=== PATIENT | female | born 1985 | race Caucasian/White ===

== ENCOUNTER 2021-02-01 14:31 | Emergency (ER) | payer SELFPAY ==
[2021-02-01 15:34] VITALS: BP 123/83; PULSE 63; RESP 20; TEMP 36.7; O2SAT 100
--- NOTE | 2021-02-01 17:15 | ED.EYEPROB ---
HPI - Eye Problem General Chief complaint: Eye Problems Stated complaint: Eye Problem Time Seen by Provider: 02/01/21 17:10 Source: patient, RN notes reviewed and old records reviewed Mode of arrival: ambulatory Limitations: no limitations History of Present Illness HPI Narrative: 35 year old female who presents to [facility] care with complaints of right eye irritation which started yesterday. Patient stats no feelings of foreign body or any trauma to her eye.Patient denies any change in her vision some increase tearing present, denies any acute sharp pain to her right eye. Patient does not wear contacts. No cold symptoms reported, has had 1 COVID vaccination. chief complaint: eye pain and eye redness Related Data Allergies Allergy/AdvReac Type Severity Reaction Status Date / Time No Known Allergies Allergy Other Uncoded 02/01/21 16:01 Review of Systems Review of Systems: CONSTITUTIONAL: Denies fever, chills, or sweats. EYES: Denies visual changes,positive for redness and soreness to right eye, increased tearing ENT: Denies rhinorrhea, congestion, sore throat, or otalgia. CARDIOVASCULAR: Denies chest pain, palpitations, or edema. RESPIRATORY: Denies cough or dyspnea. GASTROINTESTINAL: Denies abdominal pain, nausea, vomiting, or diarrhea. GENITOURINARY: Denies dysuria or hematuria. SKIN: Denies rash or itching. MUSCULOSKELETAL: Denies back pain, joint pain, or myalgia. NEUROLOGIC: Denies headache, numbness, or weakness. PSYCHIATRIC: Denies anxiety or depression. All systems reviewed & are unremarkable except as noted in HPI and below PMFSH Past Medical History Medical History (Updated 02/03/21 @ 11:21 by Keren Staples NP) Ovarian cyst Surgical History Surgical History (Updated 02/03/21 @ 11:21 by Keren Staples NP) History of tubal ligation Previous section X3 Family History Family History (Updated 02/03/21 @ 11:22 by Keren Staples NP) Other Family history non-contributory Social History Social History (Updated 02/03/21 @ 11:21 by Keren Staples NP) Smoking status: Never smoker Alcohol intake: current Alcohol use details: rare social Substance use: never Living arrangements: with family Gender identity (if verbalized by the patient): Female Comments At time of signature, agree with nursing past medical, surgical, social and family history. There is no relevant family history pertinent to the presenting complaint Exam Narrative: GENERAL: Well-appearing, well-nourished, and in no acute distress. HEAD: Normocephalic, atraumatic. EYES: PERRLA and EOMI.right eye sclera and conjunctiva red with no drainage noted from right eye, increased tearing, denies any changes in vision or sharp pain to right eye. ENT: Nares clear, no rhinorrhea or epistaxis. Mucous membranes moist.TM's normal with good light reflex, throat pink with no lesions or exudates or tonsil swelling NECK: Supple.no lymphadenopathy CHEST: Clear to auscultation. No respiratory distress. no cough noted SAO2 100% on room air HEART: Regular rate and rhythm. No murmur heard. Normal peripheral pulses. ABDOMEN: Soft, nontender, nondistended, normal active bowel sounds. EXTREMITIES: Normal range of motion. No edema. SKIN: Warm, dry, no rash. NEURO: No focal deficits. Alert and oriented x3. Course Vital Signs Vital signs: Vital Signs Temperature 36.7 C 02/01/21 15:34 Pulse Rate 63 02/01/21 15:34 Respiratory Rate 20 02/01/21 15:34 Blood Pressure 123/83 02/01/21 15:34 Pulse Oximetry 100 02/01/21 15:34 Temperature 36.7 C 02/01/21 15:34 Pulse Rate 63 02/01/21 15:34 Respiratory Rate 20 02/01/21 15:34 Blood Pressure 123/83 02/01/21 15:34 Pulse Oximetry 100 02/01/21 15:34 MDM - Eye Problem Differential Diagnosis Differential diagnosis: Likely conjunctivitis and other (right eye irritation and redness) Medical Records Attestation: I reviewed the patient's medical records.
== END 2021-02-01 17:30 | disposition home or self-care (01) ==
PROVIDERS: Emergency Provider Registered Nurse
DX: H10.9 Unspecified conjunctivitis (principal)
CPT/HCPCS: 99213; G0463

== ENCOUNTER 2021-03-15 10:46 | Emergency (ER) | payer SELFPAY ==
[2021-03-15 10:52] VITALS: BP 134/79; PULSE 70; RESP 18; TEMP 37; O2SAT 100
--- NOTE | 2021-03-15 11:17 | ED.DENTAL ---
HPI - Dental/Oral General Chief complaint: Dental/Oral Stated complaint: Facial swelling Time Seen by Provider: 03/15/21 11:06 Source: patient and RN notes reviewed Mode of arrival: ambulatory Limitations: no limitations History of Present Illness HPI Narrative: Patient presents today complaining of right jaw pain and swelling x2 days as been worsening since onset. States she is also having difficulty opening her mouth all the way. She currently rates her pain 9/10 and has been taking ibuprofen with mild relief. States that she does have some bad teeth. Similar situation occurred a few years ago and she was told she needed surgery, but due to insurance issues she never had it done. Denies fever, shortness of breath, or difficulty swallowing. MD Complaint: tooth pain Related Data Allergies Allergy/AdvReac Type Severity Reaction Status Date / Time No Known Allergies Allergy Other Uncoded 02/01/21 16:01 Review of Systems Review of Systems: CONSTITUTIONAL: Denies body aches, fever, chills, or sweats. EYES: Denies visual changes, redness, or discharge. ENT: Denies rhinorrhea, congestion, sore throat, or otalgia.+ Right tooth pain, jaw swelling CARDIOVASCULAR: Denies chest pain, palpitations, or edema. RESPIRATORY: Denies cough or dyspnea. GASTROINTESTINAL: Denies abdominal pain, nausea, vomiting, or diarrhea. GENITOURINARY: Denies dysuria or hematuria. SKIN: Denies rash, itching, or wounds. MUSCULOSKELETAL: Denies back pain, joint pain, or myalgia. NEUROLOGIC: Denies headache, numbness, tingling, or weakness. PSYCH: Denies depression or anxiety. [facility] Past Medical History Medical History Ovarian cyst Surgical History Surgical History History of tubal ligation Previous section X3 Family History Family History Other Family history non-contributory Social History Social History Smoking status: Never smoker Alcohol intake: current Alcohol use details: rare social Substance use: never Gender identity (if verbalized by the patient): Female Comments At time of signature, I have reviewed and agree with nursing past medical, surgical, social and family history unless otherwise noted. Please see nursing chart for further information. There is no relevant family history pertinent to the presenting complaint Exam Narrative: GENERAL: Well-appearing, well-nourished, and in no acute distress. HEAD: Normocephalic, atraumatic. EYES: EOMI. No redness or drainage. Conjunctivae normal. ENT: Mucous membranes pink and moist. Nares clear. Uvula midline. Patient is able to open her mouth approximately 2 fingerbreadths.. She has multiple teeth in the right upper gumline that are broken off at the gumline and brown in color. Her right cheek is moderately swollen and mildly erythematous and tender to palpation. NECK: Normal AROM. Supple. No lymphadenopathy. CHEST: No respiratory distress. Clear to auscultation. HEART: Regular rate and rhythm. No murmur appreciated. Normal peripheral pulses. EXTREMITIES: Normal range of motion. No edema. SKIN: Warm, dry, no rash. Capillary refill normal. Normal skin turgor. NEURO: No focal deficits. Alert and oriented x3. Gait steady. PSYCH: Normal affect. No signs of depression or anxiety. Course Course Level of Care: Express Care Visit Vital Signs Vital signs: Vital Signs Temperature 98.6 F 03/15/21 10:52 Pulse Rate 70 03/15/21 10:52 Respiratory Rate 18 03/15/21 10:52 Blood Pressure 134/79 03/15/21 10:52 Pulse Oximetry 100 03/15/21 10:52 Temperature 98.6 F 03/15/21 10:52 Pulse Rate 70 03/15/21 10:52 Respiratory Rate 18 03/15/21 10:52 Blood Pressure 134/79 03/15/21 10:52 Pulse Oximetry 100
== END 2021-03-15 11:27 | disposition home or self-care (01) ==
PROVIDERS: Emergency Provider Nurse Practitioner
DX: K04.7 Periapical abscess without sinus (principal)
CPT/HCPCS: 99213; G0463

== ENCOUNTER 2021-05-16 11:02 | Emergency (ER) | payer SELFPAY ==
--- NOTE | 2021-05-16 11:04 | ED.DENTAL ---
HPI - Dental/Oral General Chief complaint: Dental/Oral Stated complaint: right side of face swollen Time Seen by Provider: 05/16/21 11:04 Source: patient and RN notes reviewed History of Present Illness HPI Narrative: Patient is a 36-year-old female who presents the urgent care with complaints of right facial swelling due to dental pain. Patient states that she was seen here approximately 1 month ago and was given steroids and clindamycin which did treat the infection. Patient is aware that she needs to see a dentist and does have an appointment in June. Patient denies of any fevers, nausea, vomiting. No other acute complaints. No acute distress noted. Patient has been using Tylenol. Patient aware of the plan of care. Some parts of this dictation were generated by voice recognition software and may contain typographical and/or grammatical inaccuracies. Related Data Allergies Allergy/AdvReac Type Severity Reaction Status Date / Time No Known Allergies Allergy Other Uncoded 05/16/21 11:11 Review of Systems Review of Systems: CONSTITUTIONAL: Denies fever, chills, or sweats. EYES: Denies visual changes, redness, or discharge. ENT: Denies rhinorrhea, congestion, sore throat, or otalgia. Reports of right lower dental pain with right facial swelling CARDIOVASCULAR: Denies chest pain, palpitations, or edema. RESPIRATORY: Denies cough or dyspnea. GASTROINTESTINAL: Denies abdominal pain, nausea, vomiting, or diarrhea. GENITOURINARY: Denies dysuria or hematuria. SKIN: Denies rash or itching. MUSCULOSKELETAL: Denies back pain, joint pain, or myalgia. NEUROLOGIC: Denies headache, numbness, or weakness. All other systems reviewed are negative, except as documented in HPI. [facility] Past Medical History Medical History Ovarian cyst Surgical History Surgical History History of tubal ligation Previous section X3 Family History Family History Other Family history non-contributory Social History Social History Smoking status: Never smoker Alcohol intake: current Alcohol use details: rare social Substance use: never Gender identity (if verbalized by the patient): Female Comments At the time of my signature, I reviewed and agree with the nursing past medical, surgical, social, and family history. There is no relevant family history pertinent to the patient complaint. Exam Narrative: GENERAL: This is a well-nourished, well-developed patient, in no apparent distress. HEAD: normocephalic, atraumatic. EYES: PERRL. Sclera clear/white. Vision is grossly intact. EARS: External ears normal, auditory canals clear and without drainage, TMs normal without perforation. Hearing grossly intact. NOSE: External nose normal with no obvious nasal discharge, nares without redness, no rhinorrhea. THROAT: Mucous membranes moist, posterior pharynx clear. DENTAL: Avulsed right lower molar with surrounding erythema/edema and mild right lower facial swelling NECK: Neck supple, mildly tender right submandibular lymphadenopathy CARDIOVASCULAR: Regular rate and rhythm without murmurs, gallops, or rubs. RESPIRATORY: Clear to auscultation. Breath sounds equal bilaterally. No wheezes, rales, or rhonchi. SKIN: warm, intact with no suspicious lesions or rash, good texture and turgor. NEURO: awake, alert, and oriented to person, place and time. There were no obvious focal neurologic abnormalities. EXTREMITIES: No clubbing, cyanosis, or edema. Course Course Level of Care: Express Care Visit Vital Signs Vital signs: Vital Signs Temperature 97.9 F 05/16/21 11:06 Pulse Rate 64 05/16/21 11:06 Respiratory Rate 16 05/16/21 11:06 Blood Pressure 126/80 05/16/21 11:06 Pulse Oximetry 100 05/16
[2021-05-16 11:06] VITALS: BP 126/80; PULSE 64; RESP 16; TEMP 36.6; O2SAT 100
== END 2021-05-16 11:20 | disposition home or self-care (01) ==
PROVIDERS: Emergency Provider Nurse Practitioner Family
DX: K04.7 Periapical abscess without sinus (principal)
CPT/HCPCS: 99213; G0463

== ENCOUNTER 2022-11-29 02:54 | Observation (INO) | payer OTHER, SELFPAY ==
[2022-11-29] VITALS (19 sets, daily range): BP systolic 116–137; BP diastolic 60–93; PULSE 51–99; RESP 12–18; TEMP 36.4–37.1; O2SAT 96–100; BMI 33.0
--- NOTE | ~2022-11-29 | US_ITS ---
US right upper quadrant INDICATION: Cholelithiasis. Right upper quadrant pain. PROCEDURE: Realtime right upper abdominal ultrasound. COMPARISON: No prior studies for comparison. FINDINGS: The pancreas is normal without focal mass or pancreatic ductal dilation. Liver echotexture is normal without focal mass or intrahepatic biliary dilatation. There is normal directional flow i n the portal vein. There are gallstones. Common bile duct measures 6.6 mm. No sonographic Garcia's sign. IMPRESSION: 1: Cholelithiasis. Reviewed, dictated and finalized at location B. IMPRESSION: 1: Cholelithiasis.
--- NOTE | ~2022-11-29 | CT_ITS ---
CT of the Abdomen and Pelvis: Indication: Abdominal pain Technique: 2.5 mm axial scans were obtained through the abdomen and pelvis following intravenous adm inistration of 100 cc of Omnipaque 350. Dose reduction technique was used on this scan by utilizing a utomated exposure control and iterative reconstruction technique. The dose-length product (DLP) was 1 061.06 mGy-cm. Findings: Scans through the lung bases are unremarkable. Multiple calcified gallstones are present. There is minimal intrahepatic biliary dilatation. Common b ile duct is nondilated. The spleen, pancreas, adrenals and kidneys are within normal limits. No evid ence of aortic aneurysm. No lymphadenopathy. No bowel obstruction or bowel wall thickening. There is no evidence to suggest acute appendicitis. Images through the pelvis were performed. Urinary bladder unremarkable. Left ovarian cystic mass ivan ures 5.3 cm in diameter. Probable mild right hydrosalpinx. Impression: Cholelithiasis. Minimal intrahepatic biliary dilatation. Common duct is nondilated. This is of uncertain clinical sig nificance/chronicity. Correlate with LFTs. 5.3 cm left ovarian cyst versus possibly hydrosalpinx. Mild right hydrosalpinx probably present. Reviewed, dictated and finalized at [facility]. Impression: Cholelithiasis. Minimal intrahepatic biliary dilatation. Common duct is nondilated. This is of uncertain clinical significance/chronicity. Correlate with LFTs. 5.3 cm left ovarian cyst versus possibly hydrosalpinx. Mild right hydrosalpinx probably present.
[2022-11-29 04:04] LABS: Basophils Percent Auto 0.5 % (0.2-1.2); Eosinophils Absolute Auto 0.2 K/mm3 (0-0.3); Eosinophils Percent Auto 2.5 % (0-4.4); Hematocrit 38.2 % (37.0-47.0); Hemoglobin 12.1 g/dL (12.0-15.0); Immature Granulocyte Absolute 0.02 K/mm3 (0.00-0.031); Immature Granulocyte Percent A 0.3 % (0-0.5); Lymphocytes Absolute Auto 1.25 K/mm3 (0.9-3.2); Lymphocytes Percent Auto 20.5 % (18.3-44.2); Mean Corpuscular HGB Conc 31.7 g/dl (32-36); Mean Corpuscular Hemoglobin 29.1 pg (26-34); Mean Corpuscular Volume 91.8 fl (80-100); Mean Platelet Volume 10.2 fl (7.4-10.4); Monocytes Absolute Auto 0.5 K/mm3 (0.1-0.6); Monocytes Percent Auto 7.9 % (2.6-8.5); Neutrophils Absolute Auto 4.2 K/mm3 (1.3-6.7); Neutrophils Percent Auto 68.3 % (45.5-73.1); Platelet Count Result 262 k/mm3 (150-375); Red Blood Count 4.16 M/mm3 (4.2-5.4); Red Cell Distribution Width 14.8 % (11.5-14.5); White Blood Count 6.1 K/mm3 (4.5-10.0)
--- NOTE | 2022-11-29 04:05 | ED.GENADULT ---
HPI - General Adult General Chief complaint: Abdominal Pain Stated complaint: abd pain Time Seen by Provider: 11/29/22 03:41 History of Present Illness HPI narrative: Patient 37-year-old female who presents emergency department with chief complaint of abdominal pain patient reports this evening she started with pain in the epigastric region reports that it radiates to her back and also right upper quadrant. The patient reports she has prior history of gallstones reports she was supposed to have surgery up in [facility] but did not like the surgeon and decided to wait its been several years and reports that this evening she started having pain. Patient reports the pain is not improved by anything reports positive for nausea. Denies fever Related Data Allergies Allergy/AdvReac Type Severity Reaction Status Date / Time No Known Allergies Allergy Other Uncoded 05/16/21 11:11 Review of Systems Review of Systems: A 10 system review of systems was completed on the patient and is negative except for what is stated in the HPI. Nursing and ancillary documentation was reviewed. PMFSH Past Medical History Medical History Ovarian cyst Surgical History Surgical History History of tubal ligation Previous section X3 Family History Family History Other Family history non-contributory Social History Social History Smoking status: Never smoker Alcohol intake: current Alcohol use details: rare social Substance use: never Living arrangements: with family Gender identity (if verbalized by the patient): Female Exam Narrative: GENERAL: Well-appearing, well-nourished, and in no acute distress. HEAD: Normocephalic, atraumatic. EYES: PERRLA and EOMI. ENT: Nares clear, no rhinorrhea or epistaxis. Mucous membranes moist. NECK: Supple. CHEST: Clear to auscultation. No respiratory distress. HEART: Regular rate and rhythm. No murmur heard. Normal peripheral pulses. ABDOMEN: Soft, tenderness to palpation in the epigastric region and right upper quadrant, nondistended, normal active bowel sounds. EXTREMITIES: Normal range of motion. No edema. SKIN: Warm, dry, no rash. NEURO: No focal deficits. Alert and oriented x3. PSYCH: Normal mood and affect. Course Vital Signs Vital signs: Vital Signs Temperature 37.1 C 11/29/22 02:58 Pulse Rate 51 L 11/29/22 02:58 Respiratory Rate 16 11/29/22 02:58 Blood Pressure 137/80 11/29/22 02:58 Pulse Oximetry 100 11/29/22 02:58 Oxygen Delivery Room Air 11/29/22 02:58 Temperature 37.1 C 11/29/22 02:58 Pulse Rate 73 11/29/22 05:34 Respiratory Rate 15 11/29/22 05:34 Blood Pressure 128/85 11/29/22 05:34 Pulse Oximetry 99 11/29/22 05:34 Oxygen Delivery Room Air 11/29/22 02:58 Medical Decision Making [facility] Narrative Medical decision making narrative: Differential diagnosis include cholecystitis, choledocholithiasis, biliary obstruction, Patient is currently afebrile CBC is within normal limits CMP is within normal limits lipase is normal CT scan shows cholelithiasis and dilatation of the intrahepatic biliary ducts but the liver enzymes are currently normal. The patient's pain is improved but still is having significant amount of pain. The case was discussed with Dr. Harris who admit the patient for observation and will get an ultrasound and discuss options for definitive care of her cholelithiasis Vital Signs Vital Signs: Vital Signs Temperature 37.1 C 11/29/22 02:58 Pulse Rate 51 L 11/29/22 02:58 Respiratory Rate 16 11/29/22 02:58 Blood Pressure 137/80 11/29/22 02:58 Pulse Oximetry 100 11/29/22 02:58 Oxygen Delivery Room Air 11/29/22 02:58
[2022-11-29] MEDS: MORPHINE SULFATE (*CRX) 4 MG/ML INJ IV PUSH ×4 (04:07→20:14)
[2022-11-29] MEDS: SODIUM CHLORIDE 0.9% IV 1,000 ML 999 ML IV CONT (04:08)
[2022-11-29] MEDS: PANTOPRAZOLE SODIUM IV 40 MG VIAL IV PUSH (04:08)
[2022-11-29] MEDS: ONDANSETRON INJ 4 MG/2 ML VIAL IV PUSH ×2 (04:08→16:13)
[2022-11-29 04:13] LABS: Alanine Aminotransferase 18 U/L (6-35); Albumin Level 3.9 g/dL (3.5-5.1); Alkaline Phosphatase 67 U/L (38-126); Anion Gap 7 mmol/L (8-16); Aspartate Amino Transferase 25 U/L (14-36); Bilirubin,Total 0.6 mg/dL (0.2-1.3); Blood Urea Nitrogen 14 mg/dL (7-17); Calcium 8.5 mg/dL (8.4-10.2); Carbon Dioxide 24 mmol/L (22-30); Chloride 106 mmol/L (98-107); Estimated CRCL calculation 102 ml/min; Estimated Glomerular Filt Rate > 60; Glucose 107 mg/dL (65-110); Lipase 158 U/L (23-300); Potassium 3.6 mmol/L (3.4-5.0); Sodium 137 mmol/L (137-145)
[2022-11-29 04:35] LABS: Lactic Acid Reflex 0.7 mmol/L (0.7-2.0)
[2022-11-29 05:50] LABS: Appearance Urine Clear (Clear); Bacteria Urine 4+ /hpf; Bilirubin Urine Negative (Negative); Blood Urine Negative (Negative); Color Urine Yellow (Yellow); Glucose Urine UA Negative (Negative); Ketones Urine Negative (Negative); Leukocyte Esterase Ur Trace LEU/UL (Negative); Nitrate Urine Positive (Negative); Non Pathogenic Casts 0-2; Protein Urine Negative (Negative); RBC Urine 0-2 /hpf (0-2); Squamous Epithelial Cell Urine Few /hpf (Few); Urobilinogen Urine 0.2 mg/dL (<2.0)
[2022-11-29 05:57] LABS: Specific Grav Ur 1.052 (1.001-1.035)
[2022-11-29 05:59] LABS: Add Urine Microscopic? YES
[2022-11-29] MEDS: SODIUM CHLORIDE 0.9% IV 1,000 ML 125 ML IV CONT (07:19)
--- NOTE | 2022-11-29 10:55 | PM.IMHP ---
H&P: HPI History of Present Illness Date/Time: 11/29/22 10:55 Chief Complaint: Epigastric abdominal pain Narrative: This is a 37-year-old woman who presented to the emergency department with complaints of right upper quadrant abdominal pain. She has a known history of gallstones and reports multiple previous gallbladder attacks in the past. Most gallbladder attacks have resolved at home, but she has had to go to the ER in [place] for previous treatment. It was recommended that she follow-up with the surgeon, but did not have any surgeon she felt comfortable with while living in that area. She reports last night eating pizza for dinner and waking up with severe epigastric and right upper quadrant abdominal pain around 11:00 p.m.. Her pain radiated across her entire upper abdomen and radiated into her mid back. She developed associated nausea and multiple episodes of vomiting at home around 1:00 a.m.. Her symptoms were similar to a gallbladder attack in the past, and she presented to the ER for further evaluation. Labs were unremarkable. White blood cell count and LFTs normal. Urinalysis showed positive nitrates, trace leukocytes, 4+ bacteria, and 6-10 wbc's. Urine culture pending. CT scan of the abdomen and pelvis showed multiple gallstones with mild intrahepatic biliary dilation of uncertain clinical significance. Common duct was normal. Right upper quadrant ultrasound showed cholelithiasis. No evidence of cholecystitis, normal common bile duct. She continued to have abdominal pain and was requiring IV morphine. She was admitted to our service and kept NPO. She is seen this morning and is still having abdominal pain requiring IV morphine. Her nausea has improved and no more vomiting since admission. With further questioning, she does admit noticing dysuria, urinary frequency, and urgency over the past 5 days. She has a history of UTIs in the past. She typically takes azo [id number] when symptoms arise, but has not taken anything for her recent symptoms. Review of Systems Review of Systems: All systems reviewed & are unremarkable except as noted in HPI and below Constitutional: Constitutional: Reports no additional constitutional complaints, Denies chills, Denies fatigue, Denies fever(s) and Denies headache(s) Eyes: Eyes: Reports no additional eye complaints ENT: Reports system reviewed and no additional complaints, except as documented, Denies dizziness and Denies headache(s) Cardiovascular: Cardiovascular: Reports no additional cardiovascular complaints, Denies chest pain and Denies leg edema Respiratory: Respiratory: Reports no additional respiratory complaints, Denies cough and Denies dyspnea Gastrointestinal: Gastrointestinal: Reports as per HPI, Reports no additional gastrointestinal complaints and Reports abdominal pain Genitourinary: Genitourinary: Reports no additional female genitourinary complaints, Reports as per HPI, Reports nocturia, Reports dysuria and Reports urinary urgency Musculoskeletal: Musculoskeletal: Reports no additional musculoskeletal complaints, Denies abnormal gait and Denies joint swelling Integumentary/Breasts: Skin/Breast: Reports system reviewed and no additional complaints, except as docu and Denies jaundice Neurologic: Reports system reviewed and no additional complaints, except as documented, Denies headache(s), Denies focal weakness, Denies numbness and Denies tingling PMFSH Past Medical History Medical History Ovarian cyst Surgical History Surgical History History of ovarian cystectomy History of tubal ligation Previous section X3 Family History Family History Other Family history non-contributory Social History Social History Smoking status: Ne
[2022-11-29] MEDS: LACTATED RINGERS 1,000 ML 30 ML IV CONT ×2 (12:30→14:26)
--- NOTE | 2022-11-29 12:33 | WPDANESEPPF ---
Anes - Initial Pre Proc Eval Procedure: Operation Date: 11/29/22 15:00 Proposed Procedures p Laparoscopic Cholecystectomy, Possible Open - Sharan Bedoya DO Date/Time: 11/29/22 12:33 Surgeon: Sharan Bedoya DO Pre Op Diagnosis: biliary coic,choleithiasis Patient Data Age: 37 Gender: F Height: 1.73 m Weight: 94.35 kg Last Vital Signs Temp 37.1 C 11/29/22 02:58 Pulse 79 11/29/22 08:30 Resp 14 11/29/22 08:30 BP 125/80 11/29/22 08:30 Pulse Ox 96 11/29/22 08:30 O2 Del Method Room Air 11/29/22 02:58 Allergies Allergy/AdvReac Type Severity Reaction Status Date / Time No Known Allergies Allergy Other Uncoded 05/16/21 11:11 Home Medications Medication Instructions Recorded Confirmed Type amoxicillin 875 mg-potassium 1 tablet PO Q12H #20 tabs 05/16/21 Rx clavulanate 125 mg tablet ibuprofen 800 mg tablet 800 mg PO TID PRN pain #60 tabs 05/16/21 Rx methylprednisolone 4 mg tablets in See Rx Instructions PO .COMPLEX 05/16/21 Rx a dose pack (Medrol (Reed)) #21 ea Laboratory Tests 11/29/22 11/29/22 11/29/22 03:57 04:10 05:36 WBC 6.1 K/mm3 (4.5-10.0) RBC 4.16 L M/mm3 (4.2-5.4) Hgb 12.1 g/dL (12.0-15.0) Hct 38.2 % (37.0-47.0) MCV 91.8 fl (80-100) MCH 29.1 pg (26-34) MCHC 31.7 L g/dl (32-36) RDW 14.8 H % (11.5-14.5) Plt Count 262 k/mm3 (150-375) MPV 10.2 fl (7.4-10.4) Immature Gran % (Auto) 0.3 % (0-0.5) Neut % (Auto) 68.3 % (45.5-73.1) Lymph % (Auto) 20.5 % (18.3-44.2) [place] % (Auto) 7.9 % (2.6-8.5) Eos % (Auto) 2.5 % (0-4.4) Baso % (Auto) 0.5 % (0.2-1.2) Lymph # (Auto) 1.25 K/mm3 (0.9-3.2) [place] # (Auto) 0.5 K/mm3 (0.1-0.6) Eos # (Auto) 0.2 K/mm3 (0-0.3) Baso # (Auto) 0.0 K/mm3 (0.0-0.1) Abs Immat Gran (auto) 0.02 K/mm3 (0.00-0.031) Absolute Neuts (auto) 4.2 K/mm3 (1.3-6.7) Absolute Nucleated RBC 0.0 K/mm3 (0.0-0.012) Nucleated RBC % 0.0 % (0.0-0.2) Sodium 137 mmol/L (137-145) Potassium 3.6 mmol/L (3.4-5.0) Chloride 106 mmol/L (98-107) Carbon Dioxide 24 mmol/L (22-30) Anion Gap 7 L mmol/L (8-16) BUN 14 mg/dL (7-17) Creatinine 0.80 mg/dL (0.7-1.0) Estim Creat Clear Calc 102 ml/min Estimated GFR > 60 (59 - ) Glucose 107 mg/dL (65-110) Lactic Acid 0.7 mmol/L (0.7-2.0) Calcium 8.5 mg/dL (8.4-10.2) Total Bilirubin 0.6 mg/dL (0.2-1.3) AST 25 U/L (14-36) ALT 18 U/L (6-35) Alkaline Phosphatase 67 U/L (38-126) Total Protein 7.0 g/dL (6.3-8.2) Albumin 3.9 g/dL (3.5-5.1) Lipase 158 U/L (23-300) Urine Color Yellow (Yellow) Urine Appearance Clear (Clear) Urine pH 6.0 (5.0-9.0) Ur Specific [place] 1.052 H (1.001-1.035) Urine Protein Negative mg/dL (Negative) Urine Glucose (UA) Negative mg/dL (Negative) Urine Ketones Negative mg/dL (Negative) Ur Blood (Man) Negative (Negative) Urine Nitrate Positive H (Negative) Urine Bilirubin Negative (Negative) Urine Urobilinogen 0.2 mg/dL (<2.0) Leukocyte Esterase Rfl Trace H SUJATA/UL (Negative) Urine RBC 0-2 /hpf (0-2) Urine WBC 6-10 H /hpf Ur Squamous Epith Cells Few /hpf (Few) Urine Bacteria 4+ H /hpf Urine Casts 0-2 Patient hx anesthesia problems: none Family hx anesthesia problems: none Results Review: All pre-operative results and documents have been reviewed as part of the pre-operative evaluation. [facility] Past Medical
--- NOTE | 2022-11-29 12:44 | WPDHPUPDATE1 ---
History and Physical Update Update Date/Time: 11/29/22 12:44 History and Physical has been reviewed, including an updated exam of the patient. There are NO changes in the patient's condition. Risks, benefits, and alternatives have been discussed and questions answered. Patient agrees to proceed with procedure.
[2022-11-29] MEDS: BUPIVACAINE/EPINEPHRINE 0.5% 50 ML VIAL 30 ML INFILTRATE (13:24)
[2022-11-29] MEDS: ceFAZolin 2 GM/D5W 50 ML 2 GM/50 ML BAG IVPB (13:24)
--- NOTE | 2022-11-29 14:14 | W.PM.PROC2 ---
Procedure Note - Detailed Date of Procedure 11/29/22 Pre-op Diagnosis Biliary colic, cholelithiasis Post-op Diagnosis Other (Acute on chronic cholecystitis with cholelithiasis) Procedure Performed Laparoscopic Cholecystectomy Surgeon Sharan Bedoya DO Anesthesia General and Local (0.5% bupivacaine) Indications This is a 37-year-old woman who presented to the emergency department this morning with right upper quadrant pain that started in the middle of the night. She had eaten pizza last night for dinner. She has had some occasional pains like this in the past. She was told about 7 years ago that she had gallstones but elected not to proceed with surgery at that time. CT in the emergency department showed evidence of cholelithiasis and patient continued to have constant right upper quadrant pain. She was admitted to the hospital for observation and discussions were made with the patient about treatment options. Decision was made to proceed with laparoscopic cholecystectomy, possible open. Findings Laparoscopic cholecystectomy was performed. The gallbladder was distended and had signs of acute inflammation with hyperemia and edema. There were also signs of chronic inflammation with gallbladder wall thickening. There were multiple stones within the gallbladder. The cystic duct appeared normal in size. The gallbladder was removed and sent to lab for pathology. No other intra-abdominal abnormalities were noted. Description of Procedure Procedure as well as risks, benefits, and alternatives were discussed with patient. Written consent was obtained and placed in chart prior to procedure. The patient was brought back to surgical suite. Patient was placed in supine position on operating table. Time-out was done to confirm patient and procedure. Patient was then intubated by the anesthesia department. Abdomen was prepped and draped in sterile fashion using chlorhexidine prep. 0.5% bupivacaine with epinephrine was infiltrated at each site of incision. A 5 millimeter incision was made near the umbilicus, and a 5 millimeter Optiview trocar was advanced through the abdominal layers under direct visualization. Once inside the abdominal cavity, carbon dioxide was insufflated to create a pneumoperitoneum. The camera was inserted and the abdomen was inspected. No immediate abnormalities were identified. The patient was placed in reverse Trendelenburg position and rotated slightly to the left. An 11 millimeter incision was made in the subxiphoid region, and an 11 millimeter trocar was inserted under direct visualization. Two 5 millimeter incisions were made in the right upper quadrant, and two 5 millimeter trocars were inserted under direct visualization. The gallbladder was identified and grasped at the fundus and retracted superiorly. It was then grasped at the infundibulum retracted laterally. Careful dissection around the neck of the gallbladder was performed using blunt dissection with a [place] grasper and hook electrocautery. The cystic duct was identified, and a window was created behind it. The cystic artery was also identified and a window was created behind it. The critical view of safety was identified, visualizing the cystic duct running directly into the neck of the gallbladder, and the cystic artery running directly into the wall of the gallbladder. A 5 millimeter clip guest advisor was then used to place 2 clips proximally and 1 clip distally on both the cystic duct and cystic artery. They were then both transected using endoscopic scissors. Once safely away from the chon hepatitis, the gallbladder was dissected free from the liver bed using hook electrocautery. Hemostasis was achieved along the way. The gallbladder was removed completely and then removed through the subxiphoid port. The liver bed was then inspected. Hemostasis appeared adequate, and our clips appeared secure. The area was gently irrigated with sterile saline. No other abnor
--- NOTE | 2022-11-29 14:30 | PM.DS ---
DS: Admitting Diagnosis Discharge Date 11/30/2022 Admitting Diagnosis Biliary colic, cholelithiasis, urinary tract infection DS: Discharge Diagnosis Discharge Diagnosis (1) Cholelithiasis: Qualifiers: Biliary obstruction: without biliary obstruction Cholecystitis acuity: acute and chronic Cholecystitis presence: with cholecystitis Cholelithiasis location: gallbladder Qualified Code(s): K80.12 - Calculus of gallbladder with acute and chronic cholecystitis without obstruction Code(s): K80.20 - Calculus of gallbladder without cholecystitis without obstruction Status: Acute (2) Biliary colic: Code(s): K80.50 - Calculus of bile duct without cholangitis or cholecystitis without obstruction Status: Acute (3) UTI (urinary tract infection): Code(s): N39.0 - Urinary tract infection, site not specified Status: Acute DS: Summary Hospital Course Reason for hospitalization: Biliary colic, cholelithiasis Hospital Course: This is a 37-year-old woman who presented to the emergency department 11/29/2022 with right upper quadrant pain with nausea and vomiting. She had had symptoms in the past knew that she had a history of gallstones, but symptoms acutely became worse overnight. She was continuing with constant pain even after receiving pain meds in the emergency department. CT in the emergency department showed evidence of cholelithiasis and lab workup was unremarkable. She had symptoms consistent with acute cholecystitis with her constant pain. She was admitted for further workup and treatment. Ultrasound did confirm cholelithiasis but no significant signs of cholecystitis. Discussions were made with the patient about treatment options and decision was made to proceed with laparoscopic cholecystectomy, possible open. Surgery was performed on 11/29/2022. She was returned to the surgical floor postoperatively and her diet and activity were advanced as tolerated. She was discharged home on POD#1 once her pain was adequately controlled, she was tolerating a low-fat diet, her vitals remained stable, and she was ambulating in the halls. She was discharged on oral antibiotics for urinary tract infection which was identified with her ER workup. Status at Discharge Functional status at discharge: independent ambulation Overall status at discharge: patient is progressing back to baseline Time Spent with Patient Time attestation: Total time spent providing and/or coordinating discharge services: Time spent: Less than 30 minutes Exam Const: General: no acute distress Resp: Effort & Inspection: normal respiratory effort Auscultation: clear to auscultation bilaterally Cardio: Rate: regular rate Rhythm: regular rhythm GI: Inspection: non-distended and incision (Intact with glue) DS: Data Data Completed and Pending Pending studies at discharge: Pending at discharge 11/29/22 13:45 Surgical [PTH] Routine Labs on day of discharge: Labs from last 24 hours 11/29/22 11/29/22 11/29/22 05:36 04:10 03:57 WBC 6.1 RBC 4.16 L Hgb 12.1 Hct 38.2 MCV 91.8 MCH 29.1 MCHC 31.7 L RDW 14.8 H Plt Count 262 MPV 10.2 Immature Gran % (Auto) 0.3 Neut % (Auto) 68.3 Lymph % (Auto) 20.5 Kingfisher % (Auto) 7.9 Eos % (Auto) 2.5 Baso % (Auto) 0.5 Lymph # (Auto) 1.25 Kingfisher # (Auto) 0.5 Eos # (Auto) 0.2 Baso # (Auto) 0.0 Abs Immat Gran (auto) 0.02 Absolute Neuts (auto) 4.2 Absolute Nucleated RBC 0.0 Nucleated RBC % 0.0 Sodium 137 Potassium 3.6 Chloride 106 Carbon Dioxide 24 Anion Gap 7 L BUN 14 Creatinine 0.80 Estim Creat Clear Calc 102 Estimated GFR > 60 Glucose 107 Lactic Acid 0.7 Calcium 8.5 Total Bilirubin 0.6 AST 25 ALT 18 Alkaline Phosphatase 67 Total Protein 7.0 Albumin 3.9 Lipase 158 Urine Color Yellow Urine Appearance Clear Urine pH 6.0 Ur S
[2022-11-29 14:40] LABS: Glucose Point of Care 121 mg/dl (65-105)
[2022-11-29] MEDS: fentaNYL CITRATE INJ (*CRX) 100 MCG/2 ML VIAL 25 MCG IV PUSH ×4 (14:45→15:44)
[2022-11-29] MEDS: LACTATED RINGERS 1,000 ML 100 ML IV CONT (16:13)
[2022-11-29] MEDS: HYDROcodone/acetaminophen (*CRX) 7.5-325 MG TABLET 1 TAB PO (16:14)
[2022-11-29] MEDS: MORPHINE SULFATE (*CRX) 2 MG/ML INJ IV PUSH (17:32)
[2022-11-30] MEDS: HYDROcodone/acetaminophen (*CRX) 7.5-325 MG TABLET 1 TAB PO ×2 (01:14→07:35)
[2022-11-30 01:29] VITALS: BP 109/62; PULSE 66; RESP 18; TEMP 36.6; O2SAT 99
[2022-11-30] MEDS: MORPHINE SULFATE (*CRX) 4 MG/ML INJ IV PUSH (03:56)
[2022-11-30 05:29] VITALS: BP 111/70; PULSE 70; RESP 18; TEMP 36.7; O2SAT 99
[2022-11-30 07:48] VITALS: BP 119/73; PULSE 72; RESP 16; TEMP 36.8; O2SAT 97
[2022-11-30 08:00] VITALS: O2SAT 97
--- NOTE | 2022-11-30 10:05 | WPDANESPN ---
Anes - Prog Note Post-Op Date/Time: 11/30/22 10:05 Cardiovascular status: normal Respiratory status: normal Airway patency: baseline Mental status: baseline Post-Op hydration status: normal Vital Signs: Last Vital Signs Temp 98.2 F 11/30/22 07:48 Pulse 72 11/30/22 07:48 Resp 16 11/30/22 07:48 BP 119/73 11/30/22 07:48 Pulse Ox 97 11/30/22 08:00 O2 Del Method Room Air 11/30/22 08:00 O2 Flow Rate 6 11/29/22 14:30 Pain Score (VAS): 0 I/O: Intake & Output 11/29/22 11/30/22 11/30/22 23:59 07:59 15:59 Intake Total 480 240 Output Total 250 Balance 230 240 Laboratory Tests 11/29/22 03:57 11/29/22 03:57 11/29/22 14:36 POC Capillary Glucose 121 H Post-procedural complaints: none Patient Feedback: Patient satisfied with anesthetic care.
== END 2022-11-30 11:30 | disposition home or self-care (01) ==
LOC: ANHED 06:29 → ANH2MED 07:51
PROVIDERS: Admitting Provider Surgery; Emergency Provider Emergency Medicine; Visit Provider Surgery
PROC: 0FT44ZZ Resection of Gallbladder, Percutaneous Endoscopic Approach (ICD-10-PCS; CPT 47562; principal; 2022-11-29 15:00)
DX: K80.12 Calculus of gallbladder with acute and chronic cholecystitis without obstruction (principal); K80.50 Calculus of bile duct without cholangitis or cholecystitis without obstruction; N39.0 Urinary tract infection, site not specified; B96.1 Klebsiella pneumoniae [K. pneumoniae] as the cause of diseases classified elsewhere; E66.9 Obesity, unspecified; Z68.33 Body mass index [BMI] 33.0-33.9, adult; F10.90 Alcohol use, unspecified, uncomplicated; Z79.1 Long term (current) use of non-steroidal anti-inflammatories (NSAID); Z79.899 Other long term (current) drug therapy
CPT/HCPCS: 47562; 36415; 74177; 76705; 80053; 81001; 82948; 83605; 83690; 85025; 87077; 87086; 87186; 88304; 96361; 96374; 96375; 96376; 99285; A9270; C9113; G0378; J0330; J0690; J1100; J2250; J2270; J2405; J3010; J7030; J7120; Q9967

== ENCOUNTER 2023-02-28 18:19 | Emergency (ER) | payer OTHER, SELFPAY ==
[2023-02-28 18:23] VITALS: BP 134/87; PULSE 98; RESP 16; TEMP 37.3; O2SAT 100
--- NOTE | 2023-02-28 18:35 | ED.URI ---
HPI - URI/Sore Throat General Chief Complaint: Upper Respiratory Infection Stated Complaint: aches/fever/throat Time Seen by Provider: 02/28/23 18:35 Source: patient Mode of arrival: ambulatory Limitations: no limitations History of Present Illness HPI Narrative: 38-year-old female presents with complaint nasal congestion, cough, fatigue, body aches for 3 days. Afebrile. Taking NyQuil to treat symptoms. No chest pain or shortness of breath. All systems reviewed and negative except as noted above. Related Data Home Medications Medication Instructions Recorded Confirmed No Home Medications 02/28/23 02/28/23 Allergies Allergy/AdvReac Type Severity Reaction Status Date / Time No Known Allergies Allergy Verified 02/28/23 18:32 Review of Systems Review of Systems: CONSTITUTIONAL: Denies fever, chills, or sweats. Reports fatigue. EYES: Denies visual changes, redness, or discharge. ENT: Reports rhinorrhea, congestion. Denies sore throat, or otalgia. CARDIOVASCULAR: Denies chest pain, palpitations, or edema. RESPIRATORY: Reports cough. Denies dyspnea. GASTROINTESTINAL: Denies abdominal pain, nausea, vomiting, or diarrhea. GENITOURINARY: Denies dysuria or hematuria. SKIN: Denies rash or itching. MUSCULOSKELETAL: Denies back pain, joint pain, or myalgia. NEUROLOGIC: Denies headache, numbness, or weakness. PSYCHIATRIC: Denies anxiety or depression. All other systems reviewed are negative, except as documented in HPI. [facility] Past Medical History Medical History Ovarian cyst Surgical History Surgical History History of laparoscopic cholecystectomy 11/29/22 [facility] History of ovarian cystectomy History of tubal ligation Previous section X3 Family History Family History Other Family history non-contributory Social History Social History Smoking status: Never smoker Alcohol intake: never Alcohol use details: rare social Substance use: never Lack of Transportation: No Lack of Food: Never True Current Housing: I Have Housing Concerned About Future Housing: No Difficulty Paying Gas/Electric Bills: No Difficulty Paying for Meds: No Currently Unemployed: No Education: High School Diploma/GED Difficulty w/ Childcare or Family Care: No Living arrangements: with family Gender identity (if verbalized by the patient): Female Spiritual care concerns: No Comments At time of signature, agree with nursing past medical, surgical, social and family history. There is no relevant family history pertinent to the presenting complaint. Exam Narrative: GENERAL: This is a well-nourished, well-developed patient, in no apparent distress. HEAD: normocephalic, atraumatic. EYES: PERRL. Sclera clear/white. Vision is grossly intact. EARS: External ears normal, auditory canals clear and without drainage, TMs normal without perforation. Hearing grossly intact. NOSE: External nose normal with no obvious nasal discharge, nares without redness, no rhinorrhea. THROAT: Mucous membranes moist, posterior pharynx clear. NECK: Neck supple, non-tender without lymphadenopathy, masses or thyromegaly. CARDIOVASCULAR: Regular rate and rhythm without murmurs, gallops, or rubs. RESPIRATORY: Clear to auscultation. Breath sounds equal bilaterally. No wheezes, rales, or rhonchi. SKIN: warm, Dry, intact with no suspicious lesions or rash, good texture and turgor. NEURO: awake, alert, and oriented to person, place and time. There were no obvious focal neurologic abnormalities. EXTREMITIES: No joint tenderness, effusion, or edema noted. Course Course Level of Care: Express Care Visit Vital Signs Vital signs: Vital Signs Temperature 37.3 C 02/28/23 18:23 Pulse Rate 9
== END 2023-02-28 18:43 | disposition home or self-care (01) ==
PROVIDERS: Emergency Provider Nurse Practitioner Family
DX: U07.1 COVID-19 (principal)
CPT/HCPCS: 87426; 87804; 99213; G0463

== ENCOUNTER 2024-06-05 09:41 | Emergency (ER) | payer OTHER, SELFPAY ==
[2024-06-05 09:59] VITALS: BP 121/79; PULSE 76; RESP 16; TEMP 36.4; O2SAT 99
--- OUTSIDE RECORDS SUMMARY | 2024-06-05 10:19 | XMS_ITS | Continuity of Care Document ---
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[employer] Name Role Phone Shawn Altman MD Unavailable Unavailable Allergies, Adverse Reactions, Alerts Substance Reaction Status Criticality No Known Allergies Active No Inform ation Medications Medication Instructions Dosage Effective Dates (start - stop) Status Comments phentermine 37.5 mg capsule take 1 capsule by oral route every day before breakfast 37.5 MG - Active Procedures Procedure Date PREV VISIT, EST, AGE 18-39 OFFICE/OUTPATIENT VISIT, EST OFFICE/OUTPATIENT VISIT, EST PREV VISIT, NEW, AGE 18-39 Advance Directives Directive Yes / No Effective Date File Name No Information Encounters Encounter Description Practice Location Reason(s) For Visit Diagnoses Date Provider Providers Copied on Encounter [facility], [address], [place], [place], [id number], tel:[phone] [facility] No Information 6 Agapito Escobar. [address], [place], [place], [id number] , [place]. tel:[phone] Referring Provider: Shawn Altman, [address], [place], [place], [id number]. tel:[phone] PREV VISIT, EST, AGE 18-39 [facility], [address], [place], [place], [id number], [place] tel:[phone] [facility] Medicine PHysical (chief complaint) Encntr for general adult medical exam w/o abnormal findings 3 6 Agapito Escobar. [address], [place], [place], [id number] , [place]. [phone] Referring Provider: Pascale Samuel [address], [place], [place], [id number]. tel:[phone] OFFICE/OUTPAT IENT VISIT, [facility], [address], [place], [place], [id number], [place] [phone] [facility] overweight 1 (chief complaint) Abnormal weight gain 0- 5 Agapito Escobar. [address], [place], [place], [address] , [place]. tel:[phone] Referring Provider: Shawn Altman [address], [place], [place], [id number]. tel:[phone] OFFICE/OUTPAT IENT VISIT, [facility], [address], [place], [place], [id number], [place] [phone] [facility] weight loss (chief complaint) vitamin D (chief complaint) Abnormal weight gainVitamin deficiencyLab test for routine examDietary surveillance and counseling 5 Agapito Escobar. [address], [place], [place], [address] , [place]. tel:[phone] Referring Provider: Pascale Samuel [address], [place], [place], [id number]. tel:[phone] PREV VISIT, NEW, AGE 18-39 [facility], [address], [place], [place], [address], [place] tel:[phone] [facility] Physical (chief complaint) Dietary surveillance and counselingRoutine medical exam 5 Agapito Escobar. [address], [place], [place], [address] , [place]. tel:[phone] Family History Family Member Type Diagnosis Age At Onset Mother Problem (finding) Hypertension Brother Problem (finding) Alive and well Father Problem (finding) Unknown Payers Payer name Insurance type Covered alliance party ID Authorelmoa marifer(s) No Information Social History Type Description Quantity Date Captured Comments Alcohol Use Details Unknown Caffeine Use Details Unknown Tobacco Use Status No Information Smoking Status No Information Sex Female Chief Complaint And Reason For Visit No Information Plan Of Treatment Date Type Action Status Goal Special diet education compl eted Referral Ordered: Sofia Cameron (related to Encntr for general adult medical exam w/o abnormal findings) ordered Referral Referred To: Sofia Cameron [address] [place], [phone] Ordered: Referrals: Sofia Cameron. Evaluate and treat ordered History Of Present Illness Encounter Date Complaint History Of Prese nt Illness PHysical Pt needs annual physical. Pt has vertilgo on her face for 6 years. Most of the rash is around her face. pt denies any pain or bleeding. Pt also wants to try phentermine again for weight loss. Pt took phentermine last year and lost total 16 pounds. Pt has been able to keep the weight loss on her own with diet and exercise. Pt deneis any other complaints overweight1 Pt is overweight . Pt has been taking phentermine for the past 4 months. Pt lost total of 16 pounds. Pt denies any chest pain or headache weight loss Pertinent negati ves include cold intolerance, constipation, diarrhea, heat intolerance, irregular heartbeat/palpitations, polyuria, vision changes and vomiting. Additional information: Pt is overweight. Pt has been taking phentermine for the past 4 wseeks. Pt denies any headache or chest pain. Pt lost 8 pounds. Pt feels more energy. vitamin D Pt has low vitam in D on lab Physical Pt needs annual physical, Pt has gained weight recently but not sure how much .Pt used to take phentermine which helped Pt failed conservative weight loss effort. Pt tires diet and exercise. Pt last took phentemrine 2 years ago. Pt did not have any side effect from phentemrine. Pt denies any other complaints Instructions Date Instruction Additional Infor verónicaion Prescribed Diet Educ ation/Lifestyle Education Regarding Diet Related to Dietary Surveillance and Counseling Prescribed Activity and Exercise Education Related to Dietary Surveillance and Counseling Prescribed Diet Educ ation/Lifestyle Education Regarding Diet Related to Dietary Surveillance and Counseling Prescribed Activity and Exercise Education Related to Dietary Surveillance and Counseling Prescribed Activity and Exercise Education Related to Dietary Surveillance and Counseling Prescribed Diet Educ ation/Lifestyle Education Regarding Diet Related to Dietary Surveillance and Counseling Special diet education Related t o Dietary surveillance and counseling Prescribed activity/ exercise education Related to Dietary surveillance and counseling Assessments Type Assessment Date No Information
--- NOTE | 2024-06-05 10:51 | ED.FEMALEGU ---
HPI - Female Genitourinary General Chief complaint: Urogenital-Female Stated complaint: Urinary Problem Time Seen by Provider: 06/05/24 10:20 Source: patient and RN notes reviewed Mode of arrival: ambulatory Limitations: no limitations History of Present Illness HPI Narrative: 39-year-old female presents Express Care for with urinary symptoms for 2 days. Patient reports having burning with urination, dysuria, urinary hesitancy and frequency. Patient denies any flank pain, back pain, abdominal pain, fevers, body aches, nausea, vomiting, diarrhea, or chills. Patient took an Azo around midnight last night to help with her symptoms. Patient denies any concerns for STIs. Related Data Home Medications ?Medication ?Instructions ?Recorded ?Confirmed ?Last Taken ?Type No Home Medications 02/28/23 06/05/24 Unknown History Allergies Allergy/AdvReac Type Severity Reaction Status Date / Time No Known Allergies Allergy Verified 06/05/24 10:11 Review of Systems Review of Systems: CONSTITUTIONAL: Denies fever, chills, or sweats. EYES: Denies visual changes, redness, or discharge. ENT: Denies rhinorrhea, congestion, sore throat, or otalgia. CARDIOVASCULAR: Denies chest pain, palpitations, or edema. RESPIRATORY: Denies cough or dyspnea. GASTROINTESTINAL: Denies abdominal pain, nausea, vomiting, or diarrhea. GENITOURINARY: Positive for dysuria, increased frequency and hesitancy. Negative for hematuria SKIN: Denies rash or itching. MUSCULOSKELETAL: Denies back pain, joint pain, or myalgia. NEUROLOGIC: Denies headache, numbness, or weakness. PSYCHIATRIC: Denies anxiety or depression. All other systems reviewed are negative, except as documented in HPI. [facility] Past Medical History Medical History Ovarian cyst Surgical History Surgical History History of laparoscopic cholecystectomy 11/29/22 [facility] History of ovarian cystectomy History of tubal ligation Previous section X3 Family History Family History Other Family history non-contributory Social History Social History Smoking status: Never smoker Alcohol intake: never Alcohol use details: rare social Substance use: never Lack of Transportation: No Lack of Food: Never True Current Housing: I Have Housing Concerned About Future Housing: No Difficulty Paying Gas/Electric Bills: No Difficulty Paying for Meds: No Currently Unemployed: No Education: High School Diploma/GED Difficulty w/ Childcare or Family Care: No Living arrangements: with family Gender identity (if verbalized by the patient): Female Spiritual care concerns: No Comments At the time of my signature, I reviewed and agree with the nursing past medical, surgical, social, and family history. There is no relevant family history pertinent to the patient complaint. Exam Narrative: GENERAL: This is a well-nourished, well-developed adult, in no apparent distress. They are non ill-appearing, nontoxic appearing. HEAD: normocephalic, atraumatic. EYES: Sclera clear/white. Conjunctiva normal. Vision is grossly intact. Extraocular movements intact EARS: External ears normal Hearing grossly intact. NOSE: External nose normal THROAT: Mucous membranes moist, NECK: Normal range of motion CARDIOVASCULAR: Regular rate and rhythm without murmurs, gallops, or rubs. RESPIRATORY: Clear to auscultation. Breath sounds equal bilaterally. No wheezes, rales, or rhonchi. GASTROINTESTINAL: Abdomen soft, non-tender, nondistended. Bowel sounds are active. No hepato-splenomegaly, or palpable masses. No guarding. SKIN: warm, Dry, intact with no suspicious lesions or rash, good texture and turgor. NEURO: awake, alert, and oriented to person, place and time. There were no obvious focal neurologic abnormalities. EXTREMITIES: No joint tenderness, effusion, or edema noted. BACK: Nontender without deformity. No CVA tenderness. Course Course Emergency Course: Portions of this record may have been created with voice recognition software Level of Care: Express Care Visit Vital Signs Vital signs: Vital Signs Temperature 97.5 F L 06/05/24 09:59 Pulse Rate 76 06/05/24 09:59 Respiratory Rate 16 06/05/24 09:59 Blood Pressure 121/79 06/05/24 09:59 Pulse Oximetry 99 06/05/24 09:59 Oxygen Delivery Room Air 06/05/24 09:59 Temperature 97.5 F L 06/05/24 09:59 Pulse Rate 76 06/05/24 09:59 Respiratory Rate 16 06/05/24 09:59 Blood Pressure 121/79 06/05/24 09:59 Pulse Oximetry 99 06/05/24 09:59 Oxygen Delivery Room Air 06/05/24 09:59 Reviewed MDM - Female Genitourinary MDM Narrative Medical decision making narrative: Unable to perform urine dipstick because patient took an Azo this tablet recently which may alter the results. A urine culture is pending. Through this shared decision-making with the patient she has elected that she wants to go ahead and start antibiotics now prior to waiting for urine culture given her symptoms it is likely that she has a urinary tract infection. Will treat with cephalexin. Discussed physical exam findings. Advised supportive measures and signs/symptoms to go to the ER. Pt is appropriate for outpt treatment and f/u. Differential Diagnosis Differential diagnosis: Likely urinary tract infection, cystitis and other (Dysuria) Critical Care Time Critical Care Time Critical Care Time: No Discharge Plan Discharge Clinical Impression: Dysuria Patient Disposition: Home Condition: Stable Instructions: Antibiotic Form, Urinary Tract Infection in Women (ED) Additional Instructions: Take the antibiotic as prescribed The urine will be sent of for a culture to identify what type of bacteria is causing your infection. If the culture shows that the antibiotic will not get rid of your infection, you will be notified and a new antibiotic will be called in for you. Increase water intake you will need to follow up with your PCP, call to schedule an appointment. Go to the ER for any worsening symptoms or concerns Patient Language: Bulgarian Prescriptions: New cephalexin 500 mg capsule 500 mg PO BID 7 Days Qty: 14 0RF No Action No Home Medications Follow-up/Referrals: PHYSICIAN NOT ON STAFF,NONSTAFF [Primary Care Provider] - Time of Disposition: 10:32
== END 2024-06-05 10:40 | disposition home or self-care (01) ==
DX: R30.0 Dysuria (principal)
CPT/HCPCS: 87086; 99213; G0463

== ENCOUNTER 2024-12-28 13:39 | Emergency (ER) | payer OTHER, SELFPAY ==
[2024-12-28 13:47] VITALS: BP 133/80; PULSE 76; RESP 18; TEMP 36.8; O2SAT 98
--- NOTE | 2024-12-28 14:13 | ED_ITS ---
HPI - URI/Sore Throat General Chief Complaint: Upper Respiratory Infection Stated Complaint: Cough Time Seen by Provider: 12/28/24 14:17 Source: patient, RN notes reviewed and old records reviewed Mode of arrival: ambulatory Limitations: no limitations History of Present Illness HPI Narrative: 39 year old female who presents to [facility] care with complaints of one week duration of productive cough with green colored phlegm noted. Patient also reports sinus congestion with nasal drainage and sinus pressure. Patient reports that she has been taking DayQuil and NyQuil for her symptoms without improvement. Patient reports that she has not sore throat or any body aches or ear aches has not had a known fever, Patient reports that she can't sleep due to cough reports no history of asthma MD elicited complaint: cough, rhinorrhea, nasal congestion, sinus pain and other Onset (ago): week(s) (week) Consistency: progressively worsening Severity: moderate Description of mucous: green Able to tolerate fluids by mouth: Yes Treatments prior to arrival: other (DayQuil and NyQuil) Related Data Allergies Allergy/AdvReac Type Severity Reaction Status Date / Time No Known Allergies Allergy Verified 12/28/24 13:50 Review of Systems Review of Systems: CONSTITUTIONAL:Reports malaise, no chills, sweats, or fever. EYES: Denies visual changes, redness, or discharge. ENT: Reports rhinorrhea, congestion, sinus pain, no otalgia and no sore throat. CARDIOVASCULAR: Denies chest pain, palpitations, or edema. RESPIRATORY: Reports productive cough that is frequent with green phlegm? Denies dyspnea. GASTROINTESTINAL: Denies abdominal pain, nausea, vomiting, diarrhea SKIN: Denies rash or itching. MUSCULOSKELETAL: Denies myalgia. NEUROLOGIC: Denies headache. All systems reviewed & are unremarkable except as noted in HPI and below PMFSH Past Medical History Medical History Ovarian cyst Surgical History Surgical History History of laparoscopic cholecystectomy 11/29/22 [facility] History of ovarian cystectomy History of tubal ligation Previous section X3 Family History Family History Other Family history non-contributory Social History Social History Smoking status: Never smoker Alcohol intake: never Alcohol use details: rare social Substance use: never Lack of Transportation: No Lack of Food: Never True Current Housing: I Have Housing Concerned About Future Housing: No Difficulty Paying Gas/Electric Bills: No Difficulty Paying for Meds: No Currently Unemployed: No Education: High School Diploma/GED Difficulty w/ Childcare or Family Care: No Living arrangements: with family Gender identity (if verbalized by the patient): Female Spiritual care concerns: No Comments At time of signature, agree with nursing past medical, surgical, social and family history. There is no relevant family history pertinent to the presenting complaint Exam Narrative: GENERAL: Well-appearing, well-nourished, and in no acute distress. HEAD: Normocephalic EYES: PERRLA, conjunctivae clear ENT: Nares clear, turbinates edematous and erythematous, clear to light green discharge, sinus pressure. Mucous membranes moist. TM pearly rogers with dull light reflex bilaterally; no tragal tenderness. Oropharynx erythematous without lesions. Tonsils not enlarged and without exudate, no drooling, no hoarseness, no trismus, uvula midline.post nasal drainage NECK: Supple. No lymphadenopathy CHEST: Clear to auscultation, breath sounds equal. No wheezing, rhonchi, rales, or stridor. No respiratory distress, speaks in full sentences.productive cough frequent with green plegm not resting due to cough, [id number] on room air HEART: Regular rate and rhythm. No murmur heard. SKIN: Warm, dry, no rash. NEURO: Alert and oriented x3. PSYCH: Normal mood and affect Course Course Emergency Course: Patient is aware of diagnosis, understands and agrees to treatment plan.? Anticipatory guidance given.? Patient agrees to follow-up as directed and is aware of reasons to seek care at the emergency department. Portions of this record may have been created with voice recognition software Level of Care: Express Care Visit Vital Signs Vital signs: Vital Signs Temperature 36.8 C 12/28/24 13:47 Pulse Rate 76 12/28/24 13:47 Respiratory Rate 18 12/28/24 13:47 Blood Pressure 133/80 12/28/24 13:47 Pulse Oximetry 98 12/28/24 13:47 Oxygen Delivery Room Air 12/28/24 13:47 Temperature 36.8 C 12/28/24 13:47 Pulse Rate 76 12/28/24 13:47 Respiratory Rate 18 12/28/24 13:47 Blood Pressure 133/80 12/28/24 13:47 Pulse Oximetry 98 12/28/24 13:47 Oxygen Delivery Room Air 12/28/24 13:47 Reviewed MDM - URI/Sore Throat MDM Narrative Medical decision making narrative: Differential diagnosis considered: Henson virus, strep pharyngitis, allergic rhinitis, upper respiratory tract infection, sinusitis, rhinosinusitis, nasopharyngitis. viral pharyngitis, otitis media, otitis externa, pneumonia, bronchitis, viral cough syndrome, viral syndrome, and influenza.? Exam findings show no acute concerns or changes; patient is non-toxic appearing and is in no distress.? Patient is appropriate for outpatient treatment and follow-up. Differential Diagnosis Differential diagnosis: Likely upper respiratory infection, sinusitis, viral infection and other (acute cough) Medical Records Attestation: I reviewed the patient's medical records. Lab Data Attestation: I reviewed the patient's lab results. Critical Care Time Critical Care Time Critical Care Time: No Discharge Plan Discharge Clinical Impression: Acute bacterial sinusitis Cough Qualifiers: Cough type: acute Qualified Code(s): R05.1 - Acute cough Patient Disposition: Home Condition: Stable Instructions: Sinusitis (ED), Acute Cough (ED) Additional Instructions: Increase fluids especially juices and water [id number] cough and cold medicine of your choice for your symptoms Prescription cough medicine as directed--caution drowsiness and no driving or alcohol Zyrtec Claritin or Meryl daily Tylenol or ibuprofen for any fever pain Steroids as directed--take with food heat to the face 20-30 minutes 4-6 times a day for pain Salt water gargles, throat lozenges or throat sprays as desired Antibiotic as directed--finished the medication If your symptoms persist, change or worsen significantly before you can contact your personal physician then please, without delay, go to the emergency department for further evaluation. Follow-up with PCP in 7-10 days or sooner if needed Follow up with PCP soon in regards to your blood pressure which is elevated above threshold for referral. Blood pressure above 120/80 may indicate pre- hypertension. 133 or 80 Patient Language: Bulgarian Prescriptions: New amoxicillin 875 mg tablet 875 mg PO Q12H Qty: 20 0RF Rx Instructions: take doses of antibiotic prednisone 20 mg tablet 40 mg PO DAILY 5 Days Qty: 10 0RF Rx Instructions: take with food in the mornings codeine-guaifenesin 10-100 mg/5 mL liquid 10 ml PO Q4-6H PRN (Reason: cough) Qty: 120 0RF Follow-up/Referrals: UNKNOWN,DOCTOR [Primary Care Provider] Time of Disposition: 14:49 Quality [place] Coma Scale Eyes: Open Verbal: Oriented and Alert Motor: Follows Commands [place] Coma Total Score: 15
== END 2024-12-28 14:51 | disposition home or self-care (01) ==
PROVIDERS: Emergency Provider Registered Nurse
DX: J01.90 Acute sinusitis, unspecified (principal); R05.1 Acute cough
CPT/HCPCS: 99213; G0463